=== PATIENT | male | born 1930 | race Caucasian/White ===

== ENCOUNTER → 2016-12-18 | Outpatient (CLI) | payer OTHER ==
--- NOTE | 2016-12-18 11:04 | DX ---
Right Wrist, 2 views History: Persistent pain and swelling lateral forearm since IV was present 6 weeks ago Comparison: None Findings: The distal radius and ulna are normally mineralized. There is no periosteal reaction. There is no soft tissue gas or radiopaque foreign material. 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 Impression: No distal forearm abnormality identified. If there is concern for abscess, consider ultra sound of the symptomatic area.
== END ==
LOC: BRMIMAGING 09:58
PROVIDERS: ATTEND Family Medicine
DX: M25.531 Pain in right wrist (principal)
CPT/HCPCS: 73100-PO

== ENCOUNTER → 2018-03-21 | Outpatient (CLI) | payer OTHER | LOC: BRMIMAGING 12:34 | PROVIDERS: ATTEND Physician Assistant Medical | DX: Z01.818 Encounter for other preprocedural examination (principal); M46.1 Sacroiliitis, not elsewhere classified | CPT/HCPCS: 71046-PO ==

== ENCOUNTER → 2018-04-22 | Outpatient (CLI) | payer OTHER | LOC: BRMIMAGING 10:33 | PROVIDERS: ATTEND Family Medicine | DX: M25.512 Pain in left shoulder (principal) | CPT/HCPCS: 73010-PO; 73030-PO ==